=== PATIENT | female | born 1955 | race Caucasian/White ===

== ENCOUNTER 2019-10-12 00:57 | Emergency (ER) | payer OTHER ==
--- NOTE | 2019-10-12 01:02 | PDOC ---
History of Present Illness - General Chief Complaint: Sore Throat Stated Complaint: SORE THROAT Time Seen by Provider: 10/12/19 01:01 History Source: Patient - History of Present Illness Initial Comments: 10/12/19 01:01 64 year old female [employer] employee c/o sore throat, headache x 3 days. denies fever/ chills, cough, sob Past History - Medical History Allergies/Adverse Reactions: Allergies Allergy/AdvReac Type Severity Reaction Status Date / Time No Known Allergies Allergy Verified 10/12/19 01:05 Home Medications: Ambulatory Orders No Home Medications 0 dose .ROUTE UTDICT 08/31/12 - Psycho-Social/Smoking History Smoking Status: No Smoking History: Never smoked Number of Cigarettes Smoked Daily: 0 Review of Systems - Review of Systems Able to Perform ROS?: Yes Is the patient limited Turkish proficient: No Constitutional: No: Symptoms Reported, See HPI, Chills, Diaphoresis, Fever, Loss of Appetite, Malaise, Night Sweats, Weakness, Weight Stable, Unintentional Wgt. Loss, Unexplained wgt Loss, Other HEENTM: Yes: Nose Congestion, Throat Pain Respiratory: No: Symptoms reported, See HPI, Cough, Orthopnea, Shortness of Breath, SOB with Exertion, SOB at Rest, Stridor, Wheezing, Productive cough, Hemoptysis, Other Neurological: Yes: Headache *Physical Exam - Vital Signs 10/12/19 03:26 Last Vital Signs Temp Pulse Resp BP Pulse Ox 97.8 F 82 20 122/81 100 10/12/19 01:01 10/12/19 01:01 10/12/19 01:01 10/12/19 01:01 10/12/19 01:01 - Physical Exam General Appearance: Yes: Appropriately Dressed HEENT: positive: Pharyngeal Erythema, Nasal Congestion Integumentary: positive: Normal Color, Dry, Warm Neurologic: positive: international nurse II-XII NML intact, Fully Oriented, Alert, Normal Mood/Affect, Normal Response, Motor Strength 5/5 Medical Decision Making - Medical Decision Making viral syndrome p: covd test Discharge - Discharge Information Problems reviewed: Yes Clinical Impression/Diagnosis: Viral syndrome Condition: Fair Disposition: HOME - Follow up/Referral - Patient Discharge Instructions Patient Printed Discharge Instructions: [facility]-Coronavirus Instructions - Post Discharge Activity Work/Back to School Note: Back to Work
[2019-10-12 01:19] VITALS: BP 122/81; PULSE 82; TEMP 97.8; BMI 24.4
== END 2019-10-12 01:23 | disposition home or self-care (01) ==
LOC: JER 00:57
DX: B34.9 Viral infection, unspecified (principal)
CPT/HCPCS: 99283-25; U0003